=== PATIENT | male | born 1980 | race Caucasian/White ===

== ENCOUNTER 2021-12-19 15:49 | Outpatient (RCR) | payer MEDICARE, SELFPAY ==
--- NOTE | 2021-12-19 17:13 | PTOPEVAL1 ---
Assessment and note entered by Cathie Lo DPT Evaluation Information Assessment Status Evaluation Diagnosis Gait abnormality, back pain Onset 12/13/2021 Subjective Information Pt reports that he has been having back pain and balance issues. He is unsure of if he is only receiving PT for balance or for his back pain. He reports that he is not as active as he used to be and has been having increased balance issues ( multiple falls) and fatigue. He used to have an AFO for his foot drop but has been using a boot as well. He reports he has been using a walking stick over the last few months. He has past of CP and has foot drop on his R leg. Pt reports increased back pain when walking for at least 30 min. He reports that he is unable to get comfortable when laying down. Denies N/T in back or legs. Pt would like to be able to experience less pain to stop affecting his current mobility. Reported Pain Level Pain Score 1: Self Report Assessment PT Clinical Summary Pt presents to physical therapy with back pain and gait abnormalities secondary to his diagnosis of CP. He demonstrates decreased strength on his R LE with foot drop and has altered posture and gait including increased lumbar extension with gait due to decreased core strength. His current deficits have made it more difficult for him to walk safely and with less pain as needed for his household activities. He was provided with an HEP focused on improving lumbar mobility, leg strength, and gait pattern. He will benefit from skilled PT to reduce risk for falls, improve the aforementioned impairments, and return to recreational and functional activities. Plan of Care Interventions Electrical Stimulation,Gait Training,Hot Pack/Cold Pack,Manual Therapy,Neuro Re-education,Patient/ Caregiver Educati,Therapeutic Activities, Therapeutic Exercise PT Services Indicated Yes Treatment Frequency and 2x week for 8 visits Duration These treatments will address the objective and functional deficits as defined above. The patient will be advanced safely and appropriately in order for the patient to progress towards his/her prior level of function. Additional exercises will be introduced and as well as a comprehensive home exercise program upon discharge, if needed, ?to ensure carryover of functional gains achieved in the clinic. This treatment plan has been reviewed and agreement upon by the patient.
--- NOTE | 2022-01-24 16:32 | PTOPDC ---
Assessment and note entered by Faviola Rueda, PT Evaluation Information Assessment Status Discharge Diagnosis Gait Abnormality, Back Pain Onset 12/13/21 Subjective Information Damion Boyle reports his low back pain has not been present the last week until this am he notes soreness. He also reports his balance is improved . He has been able to go out two weekends in a row without his walking stick. He does note he will use a wheelchair cart when he goes to [place] for a big shopping trip. He does feel like he has had trouble with his back since a golf injury he sustained in 2019. Reported Pain Level Pain Score 0: Self Report Assessment PT Clinical Summary Damion Boyle has completed 8 skilled physical therapy visits for gait abnormality and back pain. He is reporting minimal to no low back pain and has been able to return to walking without his walking stick since initiating PT. He objectively demonstrates improved LE strength, improved core strength, and improved static and dynamic balance. He is now a low fall risk per the Tinetti Balance test. He was also able to increase his walking distance by 350 feet on the 6 minute walk test. He will be discharged to an independent home program after today. Plan of Care Interventions Electrical Stimulation,Hot Pack/Cold Pack,Neuro Re -education,Patient/Caregiver Educati,Therapeutic Activities,Therapeutic Exercise PT Services Indicated No
== END 2022-01-24 16:36 | disposition home or self-care (01) ==
LOC: CHSPT 15:49
PROVIDERS: Visit Provider Internal Medicine
DX: R26.9 Unspecified abnormalities of gait and mobility (principal)
CPT/HCPCS: 97014; 97110; 97162; G0283

== ENCOUNTER 2024-06-18 14:51 | Emergency (ER) | payer MEDICARE, SELFPAY ==
[2024-06-18 14:51] VITALS: BP 124/86; PULSE 81; RESP 20; TEMP 37.1; O2SAT 95
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
--- NOTE | 2024-06-18 15:39 | ECG_ITS ---
Test Date: 2024-06-18 16:01:54 Measurements Intervals [place] Rate: 67 P: 67 MI: 122 QRS: 97 QRSD: 99 T: 68 QT: 384 QTc: 408 Interpretive Statements SINUS RHYTHM WITH SINUS ARRHYTHMIA RIGHT AXIS DEVIATION INCOMPLETE RIGHT BUNDLE BRANCH BLOCK MINIMAL Q WAVES- INFERIOR LEADS BASELINE ARTIFACT- I, II, III, AVR, AVL, AVF, V1-V6 BORDERLINE ECG No previous ECG available for comparison Electronically Signed On 06-18-2024 18:12:56 CDT by Tong Wiggins D.O.
--- NOTE | 2024-06-18 15:45 | PC.NURSE ---
ERP HAS SPOKEN WITH PT. FATHER IS NOW AT BEDSIDE. SANDWICH AND SODA WERE PROVIDED TO PT. PT AND FATHER ARE AWARE OF PLAN OF CARE. WILL CONTINUE TO MONITOR.
[2024-06-18 16:10] LABS: Basophils Absolute Auto 0.07 K/mm3 (0.00-0.10); Basophils Percent Auto 0.8 % (0.0-1.0); Eosinophils Absolute Auto 0.21 K/mm3 (0.02-0.50); Eosinophils Percent Auto 2.5 % (1.0-6.0); Hematocrit 48.4 % (40.0-54.0); Hemoglobin 16.3 g/dL (14.0-18.0); Immature Granulocyte Absolute 0.02 K/mm3 (0.00-0.00); Immature Granulocyte Percent A 0.2 % (0.0-0.0); Lymphocytes Absolute Auto 1.34 K/mm3 (1.10-4.50); Lymphocytes Percent Auto 15.9 % (18.0-42.0); Mean Corpuscular HGB Conc 33.7 g/dL (32-36); Mean Corpuscular Hemoglobin 29.5 pg (27.0-31.0); Mean Corpuscular Volume 87.7 fL (78.0-102.0); Mean Platelet Volume 9.5 fl (8.7-11.0); Monocytes Absolute Auto 0.62 K/mm3 (0.10-0.90); Monocytes Percent Auto 7.3 % (2.0-11.0); Neutrophils Absolute Auto 6.19 K/mm3 (1.70-7.20); Neutrophils Percent Auto 73.3 % (50.0-70.0); Platelet Count Result 242 K/mm3 (150-420); Red Blood Count 5.52 M/mm3 (4.70-6.10); White Blood Count 8.5 K/mm3 (4.8-10.8)
--- NOTE | 2024-06-18 16:15 | PC.NURSE ---
PT IS TALKING WITH FATHER IN EXAM ROOM AT THIS TIME. AWAITING RESULTS FOR [address] NOTIFICATION. WILL CONTINUE TO MONITOR.
--- OUTSIDE RECORDS SUMMARY | 2024-06-18 16:28 | XMS_ITS | Clinical Summary ---
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 04/06/2018 Active Active Problems Problem Noted Date Diagnosed Date Asymptomatic microscopic hematuria 05/20/2018 Peritonsillar abscess 05/17/2018 Social History Tobacco Use Types Packs/Day Years Used Date Smoking Tobacco: Never Smokeless Tobacco: Never Sex and Gender Information Value Date Recorded Sex Assigned at Not on file Legal Sex Male 4:06 PM [employer] Gender Identity Not on file Sexual Orientation Not on file Last Filed Vital Signs Vital Sign Reading Time Taken Comments Blood Pressure 103/64 05/20/2018 7:37 AM CDT Pulse 71 05/20/2018 7:37 AM CDT Temperature 36.8 C (98.2 F) 05/20/2018 5:40 AM CDT Respiratory Rate 18 05/20/2018 5:40 AM CDT Oxygen Saturation 98% 05/20/2018 7:37 AM CDT Inhaled Oxygen Concentration - - Weight 84.4 kg (186 lb 1.1 oz) 05/18/2018 4:00 A M [employer] Height 170.2 cm (5' 7 ) 05/17/2018 4:08 PM [employer] Body Mass Index 29.14 05/17/2018 4:08 PM [employer] Plan of Treatment Health Maintenance Due Date Last Done Comments Annual Physical 1983 Hepatitis C 2000 DTaP, Tdap and Td Vaccines ( 1 - Tdap) 2001 Hepatitis B Vaccines (1 of 3 - 19+ 3-dose series) 2001 COVID-19 Vaccine (2023-2 5 season) 2023 HPV Vaccines Aged Out No longer eligi ble based on patient's age to complete this topic Meningococcal B Vaccine Aged Out No l onger eligible based on patient's age to complete this topic Meningococcal Vaccine Aged Out No kaylen margaret eligible based on patient's age to complete this topic Pneumococcal Vaccine: Pediat rics (0 to 5 Years) and At-Risk Patients (6 to 64 Years) Aged Out No longer eligible b ased on patient's age to complete this topic RSV Immunizations Under 20 Months Aged Out No longer eligible based on patient's age to complete this topic Insurance MEDICARE Advance Directives * Full Code (Latest Code Status on File) Date Activated Date Inactivated Comments 05/17/2018 4:59 PM 05/20/2018 1:10 PM
--- OUTSIDE RECORDS SUMMARY | 2024-06-18 16:28 | XMS_ITS | Clinical Summary ---
Author Organization [facility] [address] Address [address] [place] [address] Phone Care Team Providers Care Frit Burner Name Role Phone Magdi Cain MD Primary Care Provider [phone] Allergies Active Allergy Reactions Criticality Noted Date Comments Codeine Other (See comments) Reaction: Unknown, Penicillins Unknown 05/16/2018 Venom-Honey Bee Medications sildenafiL (VIAGRA) 100 mg tablet Take 1 tablet (100 mg total) by mouth daily as needed for erectile dysfunction 6 tablet 6 3 Active ibuprofen (ADVIL,MOTRIN) 800 mg tablet TAKE 1 TABLET BY MOUTH TWICE A DAY 60 tablet 1 4 Active busPIRone (BUSPAR) 10 mg tabletIndicatio ns:Anxiety and depression TAKE 1 TABLET BY MOUTH THREE TIMES A DAY 270 tablet 1 4 Active escitalopram (LEXAPRO) 20 mg tabletIndicatio ns:Anxiety and depression TAKE 1 TABLET BY MOUTH EVERY DAY 90 tablet 1 5 Active Active Problems Problem Noted Date Diagnosed Date Major depressive disorder, recurrent episode, mo derate 10/07/2023 Assessment & Plan (10/07/2023 6:50 PM CDT): Patient is stable in his present medication Lexapro 20 mg daily BuSpar 10 mg t.i.d.. He does have periods of breakthrough depression this is not a prolonged period of time Weight loss 02/09/2023 Assessment & Plan (02/09/2023 5:53 PM ACCOUNTS SUPERVISOR): Patient has lost weight not on purpose he has a decreased appetite I am doing basic labs to make sure there is no underlying disease. Gait abnormality 12/14/2021 Assessment & Plan (04/23/2024 11:31 AM ACCOUNTS SUPERVISOR): Ataxia unchanged secondary to cerebral palsy declined in ability. Assessment & Plan (02/09/2023 5:53 PM ACCOUNTS SUPERVISOR): Patient did go to physical therapy did improve his gait and back pain the advised him that in think basis for his legs would help him Assessment & Plan (12/14/2021 3:49 PM CDT): Patient has raised a question whether not braces will help him in terms of his gait. Chiropractor friend who is recommend his understanding I have. I am request physical therapy evaluation answer whether he would benefit from braces. Chronic bilateral low back pain without sciatica 03/07/2021 Assessment & Plan (02/09/2023 5:51 PM ACCOUNTS SUPERVISOR): Patient continues to have some back pain. 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 He uses a cane this is helped him. He is found ibuprofen to benefit him he only takes it a few times a week. Advised patient's take ibuprofen 800 mg twice a day for minimum of 2 weeks maybe as long as a month. Evaluate at than this period to time with the has less pain less frequent less severity. [place] duration of pain. Encounter for preventive health examination 05/11 Assessment & Plan (04/23/2024 11:17 AM ACCOUNTS SUPERVISOR): History and physical completed patient's health risk assessment health maintenance reviewed and addressed. No new health problems since his last visit with me.. Assessment & Plan (02/09/2023 5:50 PM ACCOUNTS SUPERVISOR): History and physical completed health risk assessment health maintenance reviewed in addressed. Assessment & Plan (12/14/2021 3:53 PM CDT): Patient history and physical completed health risk assessment discussed including immunizations. Assessment & Plan (06/04/2018 5:55 PM CDT): Patient is here for a annual exam is some few weeks ago following a hospitalization for nino tonsil abscess. He did get a lot of dental work done this is been completed. His strength is almost completely returned to normal.. Patient has cerebral palsy he has a ataxic gait and speech is sometimes slurred. He has a very good mood he communicates very well this feelings in explaining himself. I reviewed labs from his hospitalizations. Her lab needed is a follow-up on glycosuria and hematuria. Post-traumatic stress disorder, chronic 09/01/19 17 Assessment & Plan (04/23/2024 11:33 AM ACCOUNTS SUPERVISOR): Posttraumatic stress both parents who are . Experienced rejection. Patient describes when he lived in [place] as originally home he did have a support group of other friends who had disabilities. Experience was beneficial to him. In [place] he is around no one else with a disability. We will continue medications for his anxiety depression which does help him. Visits with him does not include some cognitive therapy Assessment & Plan (10/02/2023 5:14 PM CDT): Patient's continues to experience at times posttraumatic stress predominantly dealing with his family/parents patient issues from the past and recent. Patient is advised he is doing reasonably job at managing these problems. Is understandable his frustration will continue present therapy. BuSpar and Lexapro Assessment & Plan (03/07/2021 4:36 PM ACCOUNTS SUPERVISOR): Patient still experiences some posttraumatic stress wants to avoid being around people mood is started his childhood he has cerebral palsy. He certainly has some components of her excessive compulsive pre has repeated thought. He admits that he has multiple persons he is talking to in his brain. Of ice that this is thought comes him is very logical makes sense he will have a different thought on the same septic but the opposite he goes that is experience throughout the day. Patient not sure he gets a lot of rest because of this. He has lot of anxiety. Assessment & Plan (08/31/2016 7:11 PM CDT): . Refer this patient to [facility] psychological services. Patient describes posttraumatic stress involving childhood experience. He also has cerebral palsy has been exposed to a lot of negative experiences from the public. Patient also clearly describes obsessive-compulsive disorder, anxiety that he does not want to be around people. Repetitive thoughts. He is not opposed to seeing a psychiatrist but he has some fears regarding medications. Anxiety and depression 08/31/2016 Assessment & Plan (10/02/2023 5:19 PM CDT): Patient's anxiety continues recently had a panic attack. Patient is compliant in taking his medications he is advised benefit of taking medicine decreases frequency panic attacks severity of panic attacks and duration. Patient continues to hear voices and has conversations with friction character disease had for years. He is embarrassed about this experience. His conversations often times helps some changes focused from his anger and frustration regarding limitations with this cerebral palsy previous experience with this family. My conversations with this gentleman is consistent with cognitive therapy. Was every bit 45 minutes duration Assessment & Plan (02/09/2023 5:52 PM ACCOUNTS SUPERVISOR): Patient continues to do over anxiety depression. Is out of BuSpar he now is getting a refill does have a problems sometimes missing doses in the evening no change in therapy patient's is reassured he is not a candidate for mental health facility he strictly logical in his communication and understanding of life. Sometimes gets upset and emotional very outside stress problems he is not a danger to himself or anyone else Assessment & Plan (12/14/2021 3:48 PM CDT): Patient is doing very well the medication Lexapro and BuSpar. Patient is disappointed with because he has had 2 exacerbation/meltdown (overwhelming anxiety) in the past 3 months since I last saw him. Prior to medication he would have sometimes as many 2 times a day rule times per week minimal 20 in 3 months. Patient handles his best by talking through them. His anxiety attacks or emotional episode involved hearing voices in his head that consulting try anti influenced him to do negative behavior. Patient clearly recognize the medication is helped him advised he may have set is status to high expecting he would never have a breakthrough/meltdown with the medications. Recommendation and continue present therapy. Assessment & Plan (05/13/2021 6:02 PM ACCOUNTS SUPERVISOR): Patient's anxiety and depression symptoms continue improved.. Had a 1 panic attack are meltdown a past 5 weeks since he has seen me. Patient feels paranoia and threatened. 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 Continues counseling with stay on the medications. Assessment & Plan (04/07/2021 5:52 PM ACCOUNTS SUPERVISOR): Patient indicates he has definitely improved on medication Lexapro and BuSpar. He notice having less and, anxiety and paranoia. Does not feel as threatened repetitive thoughts have decreased significantly. He sees as needed for improvement Lexapro was increased to 40 mg daily. Assessment & Plan (03/07/2021 4:38 PM ACCOUNTS SUPERVISOR): Patient's anxiety and depression he has fears is someone is going to locking up in a mental facility because he has multiple personal up now it is in terms of people talking to him in his brain. 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 However the differen voices/personality is that a giving him thoughts always fighting amongst cells on what he should do. Patient did fine counseling of a benefit to him. He has not been recently to the counselor. The medications previously worked they did no longer work. At this time increase his Lexapro from 5 mg daily to 20 mg daily. I am not going to change to BuSpar at this time. Month certain well but happen if we were to suppress all of his OCD and competitive voices in his brain how he would do. He is afraid if he did not have any by did talk to her no thought processes in his brain he would really feel isolated. Still holes on the sometimes feeling worthless and that he is a burden to others secondary to his cerebral palsy. Assessment & Plan (10/10/2019 2:25 PM CDT): This patient is anxiety has intensified in recent months related to the COVID-19 pandemic as well as some of the political unrest. Patient's anger levels is increased, patient's has decreased. Patient's recognize this. He is having repetitive thoughts feelings of threats he comes in contact with other. Patient recognized some of these feelings are not warranted none the less he feels he can not lead is Guard down. This patient has cerebral palsy affects speech and is gait. He is press is that he feels like he has a potential victim for anyone who is raises the wants to be aggressive. Patient also advised me that his previous counts the mental health facility his left he saw new counselor the report was not well established.. New counselor a questions out legitimate was some of his actions and feelings.. This idea did not go well with him given the fact he has already self conscious having cerebral palsy in obvious physical changes from it. Plan advised patient to seek out a new new counselor at the facility and that his falls and actions and not for attention seeking but a real experiences to him. Second suggestion patient needs to turn off the news stations there really of setting him.. Patient agrees that he is going to put a block this cable TV systems a wart what certain programs at the been known to get him upset.. Third situation patient will be started on Lexapro 5 mg daily. He is advised that he may have side effects from the medication attempt to tolerated to side effects are tolerable. Assessment & Plan (04/30/2019 3:48 PM ACCOUNTS SUPERVISOR): Patient continues to be used for is doing very well with present medication. Patient's feels reasonably controlled deal with his emotions an everyday life will continue present therapy Assessment & Plan (06/04/2018 5:53 PM CDT): Patient depressive symptoms are greatly improved BuSpar is helped him considerably with his anxiety. He has anxiety when he goes places in after he has day settles down he lot of anxiety as he gets closer to the doctor's office today for this visit even though he has been here did many times. Patient also gives a example being very anxious he went to the [employer] hockey game last night and he was wearing the opponens Jersey. He had repetitive thoughts this someone was going to jump on him in bite in because he is wearing the opponent team Jersey. Attitude he was there for several minutes and got a seat this fear eventually resolved. Continue BuSpar. Assessment & Plan (07/23/2017 3:27 PM CDT): Patient doing very well on BuSpar 5 mg 3 times a day. He has learned he takes 2 tablets in the morning 1 in the evening is works best for him. In his opinion he had only 2 meltdown in the past 11 months since being on this medication. Very comfortable with outcome. He has cerebral palsy is expected speech is able to communicate very well with me today on this issue. Assessment & Plan (08/31/2016 7:15 PM CDT): Patient describes a lot of anxiety anger slam stains breaks things when he becomes anger goes into rages never cause any harm or intents to harm to anyone. Withdrawals from others are frustration. He does have crying spells and sadness. Like some assistance for anxiety and depression. Started on BuSpar 5 mg 3 times a day. I discuss antidepressants can make depression were and he is apprehensive about this. Refer to psychiatry for his depressive component. And take over his anxiety treatment as well as concerned about his communication and intelligent. He expresses itself very well his great insight into his problems. He is not homicidal or suicidal. Ataxic cerebral palsy 08/31/2016 Assessment & Plan (08/31/2016 7:13 PM CDT): Cerebral palsy patient is not declining at all he is study get his GED. Resolved Problems Problem Noted Date Diagnosed Date Resolved Date Hematuria of undiagnosed cause 06/04/2018 02/09/2023 Assessment & Plan (06/04/2018 5:52 PM CDT): Incidental hematuria when he was patient was septic and toxic from very tonsil abscess will repeat a UA today. Hospital discharge follow-up 05/21/2018 04/30/2019 Assessment & Plan (05/21/2018 6:13 PM CDT): Patient discharged from [facility] in [facility] yesterday for peritonsillar abscess. Presently he is on clindamycin. He had several infected infected teeth he schedule yet extractions next week after he completes his antibiotics. Patient is presently taking chart a given 3 more days a toradol list maximum recommended he can take. He presently has a total of 8 tablets of tramadol remaining from his hospital discharge. Patient is given sample of Dexilant because he is taking the non steroidal anti-inflammatory Toradol. Glucosuria 05/21/2018 12/14/2021 Assessment & Plan (06/04/2018 5:51 PM CDT): Patient glucosuria and hematuria is recovering from his peritonsillar abscess. Recheck UA today Assessment & Plan (05/21/2018 6:14 PM CDT): Patient had glucosuria while in the hospital will get a repeat UA today. No blood draw today patient has had a difficult time with blood drawing last 3 days while in the hospital. Fever 05/16/2018 04/30/2019 Assessment & Plan (05/16/2018 6:19 PM ACCOUNTS SUPERVISOR): Patient has been running a fever for the last 2-3 days, she is wet he is no longer fever. He has been taking Tylenol around the clock and some muscle aches. Plans at this time continue to CBC is all the metabolic profile. Patient is treated for acute bronchitis and upper respiratory tract symptoms with doxycycline 100 mg twice a day. Sore throat 05/16/2018 04/30/2019 Assessment & Plan (05/16/2018 6:18 PM ACCOUNTS SUPERVISOR): Patient's source is doing a lot of coughing and congestion. He also has gag reflex is difficult to get a throat swab does not open his mouth very wide is cerebral palsy. Patient is treated for upper and lower respiratory tract infection doxycycline 100 mg twice a day for 10 days. Cellulitis of left forearm 11/08/2017 0 04/30/2019 Assessment & Plan (11/08/2017 5:31 PM CDT): Cellulitis on left elbow is been there 7-10 days open some drainage whole circumference is about 8 cm with the opening approximately 0.5 cm in diameter with yellow mucus present. Patient did not have any pain he is wheezing and some pus and run out I was unable to get any pus to come out today. Wound is clean nontender. Plans Bactrim DS 1 twice a day for 7 days patient is highly allergic to penicillin. Encounter for post-traumatic wound check 07/23/2017 04/30/2019 Assessment & Plan (07/23/2017 3:29 PM CDT): Patient laceration of his left forearm last week his arm went through wonder. He had sutures placed in a stocking Hospital was seen Sunday for follow-up in emergency room advised follow-up his PCP's wound had completely healed. Today's visit is wound is healed sutures removed no evidence of infection no need for further treatment. Foot pain, right 08/31/2016 02/09/2023 Assessment & Plan (08/31/2016 7:12 PM CDT): Patient has revoked pause in as a at attic gait and he informs me for about 2 years he had a shoe prosthesis that extended all way up his legs this relieved in the consider wound leg pain and foot pain. Without the prosthesis for issue and leg he will wear the heel off of his right shoe in a matter of a few months. The left heel will be normal refer to Podiatry evaluation for proper footwear prosthesis is/equipment to help this gentleman gait and pain Encounters Date Type Department Care Team Description 06/18/2024 Telephone [facility] [address] [place] [address] Magdi Cain MD Anxiety 04/22/2024 1:30 PM ACCOUNTS SUPERVISOR Lab [facility] [address] [place] [address] Need for hepatitis C screening test; Need for hepatitis B screening test 04/22/2024 1:00 PM ACCOUNTS SUPERVISOR Office Visit [facility] [address] [place] [address] Magdi Cain MD Need for immunization against influenza (Primary Dx); Need for hepatitis C screening test; Encounter for preventive health examination; Need for hepatitis B screening test; Post-traumatic stress disorder, chronic; Ataxic cerebral palsy (HCC) from Last 3 Months Immunizations Immunization Administration Dates Next Due Influenza, Trivalent, Preser vative Free, Intramuscular 04/22/2024 Influenza, Unspecified 12/10/2022(Deferred: Teri ent Refused) TD Preservative Free 03/12/2009 Surgical History Surgery Date Site/Laterality Comments OTHER SURGICAL HISTORY HEEL CORDS LENGHTENED Family History Medical History Relation Name Comments Coronary artery disease Father Buster nary artery disease, premature; Hypertension Father Hypertension; Throat cancer Father Cancer, throat ; Alcohol abuse Father's Brother Alcoholism ; Brain Aneurysm Mother's Sister BRAIN ANEU RYSM; Relation Name Status Comments Father Father's Brother Mother's Sister Social History Tobacco Use Types Packs/Day Years Used Date Smoking Tobacco: Former Smokeless Tobacco: Never Tobacco Cessation:Counseling Given: Not Answered Alcohol Use Standard Drinks/Week Comments Yes 0 (1 standard drink = 0.6 oz pur e alcohol) PHQ-2 Answer Date Recorded PHQ-2 Total Score (If total score is 3 or more points, staff should administer the PHQ-9) 3 04/22/2024 PHQ-9 Answer Date Recorded PHQ-9 Total Score 14 04/22/2024 Sex and Gender Information Value Date Recorded Sex Assigned at Not on file Legal Sex Male 9:05 PM ACCOUNTS SUPERVISOR Gender Identity Not on file Sexual Orientation Not on file Obstetrics History Last Filed Vital Signs Vital Sign Reading Time Taken Comments Blood Pressure 135/93 04/22/2024 12:17 PM ACCOUNTS SUPERVISOR Pulse 64 04/22/2024 12:17 PM ACCOUNTS SUPERVISOR Temperature 36.2 C (97.1 F) 04/22/2024 12:17 PM ACCOUNTS SUPERVISOR Respiratory Rate 16 04/22/2024 12:17 PM ACCOUNTS SUPERVISOR Oxygen Saturation 95% 04/22/2024 12:17 PM ACCOUNTS SUPERVISOR Inhaled Oxygen Concentration - - Weight 88.5 kg (195 lb 3.2 oz) 04/22/2024 12:17 PM ACCOUNTS SUPERVISOR Height 170.2 cm (5' 7 ) 04/22/2024 12:17 PM ACCOUNTS SUPERVISOR Body Mass Index 30.57 04/22/2024 12:17 PM ACCOUNTS SUPERVISOR Plan of Treatment Health Maintenance Due Date Last Done Comments Varicella Vaccines (1 of 2 - 13+ 2-dose series) 06/12/1995 DTaP/Tdap/Td Vaccine (1 - Tdap) 03/13/2009 03/12/2009 Depression Screening 04/22/2025 04/22/2024, 04/22/2024, 05/13/2021, Additional history exists Regular Well Visit/Exam 18-64 04/22/2025 04/22/2024, 02/09/2023, 12/13/2021, Additional history exists Hepatitis B Screening Completed 04/22/2024 Hepatitis C Screening Completed 04/22/2024 Influenza Vaccine Completed 04/22/2024 HPV Vaccines Aged Out No longer eligi ble based on patient's age to complete this topic Pneumococcal vaccine <65 Aged Out No longer eligible based on patient's age to complete this topic Procedures Procedure Name Priority Date/Time Associated Diagnosis Comments HEPATITIS B SURFACE ANTIGEN Routine 04/22/2024 1:22 PM ACCOUNTS SUPERVISOR Need for hepatitis B screening test HEPATITIS B CORE ANTIBODY, TOTAL Routine 04/22/2024 1:22 PM ACCOUNTS SUPERVISOR Need for hepatitis B screening test HEPATITIS B SURFACE ANTIBODY (IMMUNE STATUS) Routine 04/22/2024 1:22 PM ACCOUNTS SUPERVISOR Need for hepatitis B screening test HEPATITIS C ANTIBODY Routine 04/22/2024 1:22 PM ACCOUNTS SUPERVISOR Need for hepatitis C screening test from Last 3 Months Results * Hepatitis C antibody Blood (04/22/2024 1:22 PM ACCOUNTS SUPERVISOR) Hep C Ab Nonreactive Nonreactive Comment: Interpretive Data Nonreactive: Antibodies to HCV not detected. Does NOT exclude the possibility of recent exposure to HCV. Equivocal: Equivocal for HCV antibodies. Supplemental molecular testing will be automatically performed to determine infection status in accordance with current CDC screening recommendations. Reactive: Positive for HCV antibodies. This may represent current or past HCV infection. Supplemental molecular testing will be automatically performed to determine current infection status in accordance with current CDC screening recommendations. Interpretive data was last revised on 2019. Testing performed by: [facility], [address] [place] [address]., [id number] Blood 04/22/2024 1:22 PM ACCOUNTS SUPERVISOR 04/22/2024 8:28 PM ACCOUNTS SUPERVISOR Magdi Cain MD LAB MICROBIOLOGY - GENERAL ORDERABLES Final Result Performing Organization Address City/[facility]/ZIP Co de Phone Number MESERET [phone] [facility] [place] [address] * Hepatitis B core antibody, total Blood (04/22/2024 1:22 PM ACCOUNTS SUPERVISOR) Pathologist [facility] Hep B core IgG/IgM Nonreactive Nonreactive Comment:Testing performed by : [facility], [address] [place] [address]., [id number] Blood 04/22/2024 1:22 PM ACCOUNTS SUPERVISOR 04/23/2024 10:28 AM ACCOUNTS SUPERVISOR Magdi Cain MD LAB MICROBIOLOGY - GENERAL ORDERABLES Final Result Performing Organization Address [facility] Co de Phone Number MESERET [phone] [facility] [place] [address] * Hepatitis B surface antibody (immune status) Blood (04/22/2024 1:22 PM ACCOUNTS SUPERVISOR) Pathologist [facility] HBsAb (immune status) Nonreactive Comment: Interpretive Data Nonreactive: This result is consistent with a lack of immunity to Hepatitis B Virus when used in the setting of routine screening. Equivocal: The immune status of the individual should be further assessed, if appropriate, after consideration of clinical status, risk factors, and additional diagnostic information. Reactive: This result is consistent with immunity to Hepatitis B Virus when used in the setting of routine screening. Current interpretive data was last revised on 19. Testing performed by: [facility], [address] [place] [address]., [id number] Blood 04/22/2024 1:22 PM ACCOUNTS SUPERVISOR 04/22/2024 8:28 PM ACCOUNTS SUPERVISOR Magdi Cain MD LAB MICROBIOLOGY - GENERAL ORDERABLES Final Result Performing Organization Address City/[facility]/ZIP Co de Phone Number MESERET MENDOSA [address] [address] [place] [address] * Hepatitis B Surface Antigen Blood (04/22/2024 1:22 PM ACCOUNTS SUPERVISOR) HepBsAg Nonreactive Nonreactive Comment:Testing performed by : [facility], [address] [place] [address]., [id number] Blood 04/22/2024 1:22 PM ACCOUNTS SUPERVISOR 04/22/2024 8:28 PM ACCOUNTS SUPERVISOR Magdi Cain MD LAB MICROBIOLOGY - GENERAL ORDERABLES Final Result Performing Organization Address [facility] Co de Phone Number MESERET MENDOSA [address] [address] [place] [address] from Last 3 Months Insurance MEDICARE [facility] Address: [address] [address] [place] [address] Care Teams Frit Burner Relationship Specialty Start Date End Date Magdi Cain MD PCP - General 05/28/13
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
--- OUTSIDE RECORDS SUMMARY | 2024-06-18 16:28 | XMS_ITS | Referral Summary ---
Author Organization [facility] [address] Address [address] [place] [address] Phone Care Team Providers Care Windows Consultant Name Role Phone Magdi Cain MD Primary Care Provider [phone]- [phone] Encounters Date Type Department Care Team Description 06/18/[facility]24 [facility] [address] [place] [phone] Magdi Cain MD Anxiety 04/22/2024 1:30 PM ASBESTOS WIRE FINISHER Lab [facility] [address] [place] [address] Need for hepatitis C screening test; Need for hepatitis B screening test 04/22/2024 1:00 PM ASBESTOS WIRE FINISHER Office Visit [facility] [address] [place] [phone] Magdi Cain MD Need for immunization against influenza (Primary Dx); Need for hepatitis C screening test; Encounter for preventive health examination; Need for hepatitis B screening test; Post-traumatic stress disorder, chronic; Ataxic cerebral palsy (HCC) from Last 3 Months Allergies Active Allergy Reactions Criticality Noted Date [...] 02/09/2023 Assessment & Plan (02/09/2023 5:53 PM ASBESTOS WIRE FINISHER): Patient has lost weight not on purpose he has a decreased appetite I am doing basic labs to make sure there is no underlying disease. Gait abnormality 12/14/2021 Assessment & Plan (04/23/2024 11:31 AM ASBESTOS WIRE FINISHER): Ataxia unchanged secondary to cerebral palsy declined in ability. Assessment & Plan (02/09/2023 5:53 PM ASBESTOS WIRE FINISHER): Patient did go to physical therapy did [...] 03/07/2021 Assessment & Plan (02/09/2023 5:51 PM ASBESTOS WIRE FINISHER): Patient continues to have some back pain. He found physical therapy 6 months ago did help him reduce his pain 20-40% refer back to physical therapy also felt it made him stronger and ambulating patient would like to postpone physical therapy visits until 2023 when [address] insurance [address] place Assessment & Plan (04/07/2021 5:52 PM ASBESTOS WIRE FINISHER): Joint pains have improved some this is the ibuprofen Assessment & Plan (03/07/2021 4:39 PM ASBESTOS WIRE FINISHER): Patient's chronic back pain for least a [...] has less pain less frequent less severity. [place] duration of pain. Encounter for preventive health examination 05/11 Assessment & Plan (04/23/2024 11:17 AM ASBESTOS WIRE FINISHER): History and physical completed patient's health risk assessment health maintenance reviewed and addressed. No new health problems since his last visit with me.. Assessment & Plan (02/09/2023 5:50 PM ASBESTOS WIRE FINISHER): History and physical completed health risk assessment [...] 17 Assessment & Plan (04/23/2024 11:33 AM ASBESTOS WIRE FINISHER): Posttraumatic stress both parents who are . Experienced rejection. Patient describes when he lived in [place] as originally home he did have a support group of other friends who had disabilities. Experience was beneficial to him. In [place] he is around no one else with [...] Lexapro Assessment & Plan (03/07/2021 4:36 PM ASBESTOS WIRE FINISHER): Patient still experiences some posttraumatic stress wants [...] PM CDT): . Refer this patient to [place] psychological services. Patient describes posttraumatic stress involving [...] duration Assessment & Plan (02/09/2023 5:52 PM ASBESTOS WIRE FINISHER): Patient continues to do over anxiety depression. [...] therapy. Assessment & Plan (05/13/2021 6:02 PM ASBESTOS WIRE FINISHER): Patient's anxiety and depression symptoms continue improved.. Had a 1 panic attack are meltdown a past 5 weeks since he has seen me. Patient feels paranoia and threatened. 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 Continues counseling with stay on the medications. Assessment & Plan (04/07/2021 5:52 PM ASBESTOS WIRE FINISHER): Patient indicates he has definitely improved on medication Lexapro and BuSpar. He notice having less and, anxiety and paranoia. Does not feel as threatened repetitive thoughts have decreased significantly. He sees as needed for improvement Lexapro was increased to 40 mg daily. Assessment & Plan (03/07/2021 4:38 PM ASBESTOS WIRE FINISHER): Patient's anxiety and depression he has fears [...] tolerable. Assessment & Plan (04/30/2019 3:48 PM ASBESTOS WIRE FINISHER): Patient continues to be used for is [...] being very anxious he went to the [employer] hockey game last night and he was wearing the opponens [employer]. He had repetitive thoughts this someone was going to jump on him in bite in because he is wearing the opponent team [employer]. Attitude he was there for several minutes [...] (05/21/2018 6:13 PM CDT): Patient discharged from [facility] in [facility] yesterday for peritonsillar abscess. Presently he [...] 04/30/2019 Assessment & Plan (05/16/2018 6:19 PM ASBESTOS WIRE FINISHER): Patient has been running a fever for [...] 04/30/2019 Assessment & Plan (05/16/2018 6:18 PM ASBESTOS WIRE FINISHER): Patient's source is doing a lot of [...] to help this gentleman gait and pain Immunizations Immunization Administration Dates Next Due Influenza, Trivalent, Preser vative Free, Intramuscular 04/22/2024 Influenza, Unspecified 12/10/2022(Deferred: Teri ent Refused) TD Preservative Free 03/12/2009 Social History Tobacco Use Types Packs/Day Years [...] on file Legal Sex Male 9:05 PM ASBESTOS WIRE FINISHER Gender Identity Not on file Sexual Orientation Not on file Last Filed Vital Signs Vital Sign Reading Time Taken Comments Blood Pressure 135/93 04/22/2024 12:17 PM ASBESTOS WIRE FINISHER Pulse 64 04/22/2024 12:17 PM ASBESTOS WIRE FINISHER Temperature 36.2 C (97.1 F) 04/22/2024 12:17 PM ASBESTOS WIRE FINISHER Respiratory Rate 16 04/22/2024 12:17 PM ASBESTOS WIRE FINISHER Oxygen Saturation 95% 04/22/2024 12:17 PM ASBESTOS WIRE FINISHER Inhaled Oxygen Concentration - - Weight 88.5 kg (195 lb 3.2 oz) 04/22/2024 12:17 PM ASBESTOS WIRE FINISHER Height 170.2 cm (5' 7 ) 04/22/2024 12:17 PM ASBESTOS WIRE FINISHER Body Mass Index 30.57 04/22/2024 12:17 PM ASBESTOS WIRE FINISHER Plan of Treatment Not on file Procedures Procedure Name Priority Date/Time Associated Diagnosis Comments HEPATITIS B SURFACE ANTIGEN Routine 04/22/2024 1:22 PM ASBESTOS WIRE FINISHER Need for hepatitis B screening test HEPATITIS B CORE ANTIBODY, TOTAL Routine 04/22/2024 1:22 PM ASBESTOS WIRE FINISHER Need for hepatitis B screening test HEPATITIS B SURFACE ANTIBODY (IMMUNE STATUS) Routine 04/22/2024 1:22 PM ASBESTOS WIRE FINISHER Need for hepatitis B screening test HEPATITIS C ANTIBODY Routine 04/22/2024 1:22 PM ASBESTOS WIRE FINISHER Need for hepatitis C screening test from Last 3 Months Results * Hepatitis C antibody Blood (04/22/2024 1:22 PM ASBESTOS WIRE FINISHER) Hep C Ab Nonreactive Nonreactive Comment: Interpretive [...] last revised on 2019. Testing performed by: [facility], [address] [place] [address]., [id number] Blood 04/22/2024 1:22 PM ASBESTOS WIRE FINISHER 04/22/2024 8:28 PM ASBESTOS WIRE FINISHER us Magdi Cain MD LAB MICROBIOLOGY - GENERAL ORDERABLES Final Result Performing Organization Address City/State/[facility] Co de Phone Number [facility] [address] [facility] Department [place] [address] * Hepatitis B core antibody, total Blood (04/22/2024 1:22 PM ASBESTOS WIRE FINISHER) Hep B core IgG/IgM Nonreactive Nonreactive Comment:Testing performed by : [facility], [address] [place] [address], [place]., [address] Blood 04/22/2024 1:22 PM ASBESTOS WIRE FINISHER 04/23/2024 10:28 AM ASBESTOS WIRE FINISHER us Magdi Cain MD LAB MICROBIOLOGY - GENERAL ORDERABLES Final Result Performing Organization Address City/[facility]/ZIP Co de Phone Number MESERET MENDOSA [address] [address] [email or web address] [address] * Hepatitis B surface antibody (immune status) Blood (04/22/2024 1:22 PM ASBESTOS WIRE FINISHER) HBsAb (immune status) Nonreactive Comment: Interpretive Data [...] last revised on 19. Testing performed by: [address] [id number] Blood 04/22/2024 1:22 PM ASBESTOS WIRE FINISHER 04/22/2024 8:28 PM ASBESTOS WIRE FINISHER us Magdi Cain MD LAB MICROBIOLOGY - GENERAL ORDERABLES Final Result Performing Organization Address [facility] Co de Phone Number MESERET [address] [facility] [place] [address] * Hepatitis B Surface Antigen Blood (04/22/2024 1:22 PM ASBESTOS WIRE FINISHER) HepBsAg Nonreactive Nonreactive Comment:Testing performed by : [address] [id number] Blood 04/22/2024 1:22 PM ASBESTOS WIRE FINISHER 04/22/2024 8:28 PM ASBESTOS WIRE FINISHER Magdi Cain MD LAB MICROBIOLOGY - GENERAL ORDERABLES Final Result MESERET MENDOSA [address] [address] [place] [address] from Last 3 Months Insurance MEDICARE MEDICARE MEDICARE Care Teams Windows Consultant Relationship Specialty Start Date End Date Magdi Cain MD [facility] - General 05/28/13
[2024-06-18 16:35] LABS: Alanine Aminotransferase 25 U/L (16-63); Albumin Level 4.7 g/dL (3.4-5.0); Alkaline Phosphatase 79 U/L (46-116); Anion Gap 12 mmol/L (4-12); Aspartate Amino Transferase 14 U/L (15-37); Bilirubin,Total 1.5 mg/dL (0.00-1.00); Blood Urea Nitrogen 13 mg/dL (7-18); Calcium 9.6 mg/dL (8.5-10.1); Carbon Dioxide 26 mmol/L (21-32); Chloride 104 mmol/L (98-108); Estimated CRCL calculation 71 ml/min; Estimated Glomerular Filt Rate > 60; Glucose 104 mg/dL (70-99); Osmolality Calculated 294 mOsm/kg (285-295); Potassium 4.1 mmol/L (3.5-5.1); Sodium 142 mmol/L (136-145); Thyroid Stimulating Hormone 1.44 uIU/mL (0.36-3.74); Total Protein 8.1 g/dL (6.4-8.2); Troponin I 5.4 ng/L (0.00-60.4)
--- NOTE | 2024-06-18 16:44 | PC.NURSE ---
PT IS SPEAKING WITH FATHER, , AND HER MOTHER AT BEDSIDE. PT IS ATTEMPTING TO PROVIDE URINE SPECIMEN. WILL CONTINUE TO MONITOR.
[2024-06-18 16:46] LABS: Influenza A QL RT-PCR Negative (Negative); Influenza B QL RT-PCR Negative (Negative); RSV RNA, RT-PCR Negative (Negative); SARS-CoV-2 RNA PCR Negative (Negative)
--- OUTSIDE RECORDS SUMMARY | 2024-06-18 16:49 | XMS_ITS | Clinical Summary ---
Author Organization [facility] Address [address] [place] [address] Care Team Providers Care Lidar Analyst Name Role Phone Unavailable Primary Care Provider [...] on file Legal Sex Male 4:06 PM ELECTRICAL INSTRUMENT MAKER Gender Identity Not on file Sexual Orientation [...] lb 1.1 oz) 05/18/2018 4:00 A M ELECTRICAL INSTRUMENT MAKER Height 170.2 cm (5' 7 ) 05/17/2018 4:08 PM ELECTRICAL INSTRUMENT MAKER Body Mass Index 29.14 05/17/2018 4:08 PM ELECTRICAL INSTRUMENT MAKER Plan of Treatment Health Maintenance Due Date [...]
--- OUTSIDE RECORDS SUMMARY | 2024-06-18 16:49 | XMS_ITS | Clinical Summary ---
Author Organization [facility] [address] Address [address] [place] [address] Phone Care Team Providers Care Brake Repairer Air Name Role Phone Magdi Cain MD Primary Care Provider +1- [phone] Allergies Active Allergy Reactions Criticality Noted Date [...] 02/09/2023 Assessment & Plan (02/09/2023 5:53 PM TRANSPORTATION CONSULTANT): Patient has lost weight not on purpose he has a decreased appetite I am doing basic labs to make sure there is no underlying disease. Gait abnormality 12/14/2021 Assessment & Plan (04/23/2024 11:31 AM TRANSPORTATION CONSULTANT): Ataxia unchanged secondary to cerebral palsy declined in ability. Assessment & Plan (02/09/2023 5:53 PM TRANSPORTATION CONSULTANT): Patient did go to physical therapy did [...] 03/07/2021 Assessment & Plan (02/09/2023 5:51 PM TRANSPORTATION CONSULTANT): Patient continues to have some back pain. He found physical therapy 6 months ago did help him reduce his pain 20-40% refer back to physical therapy also felt it made him stronger and ambulating patient would like to postpone physical therapy visits until 2023 when new insurance takes place Assessment & Plan (04/07/2021 5:52 PM TRANSPORTATION CONSULTANT): Joint pains have improved some this is the ibuprofen Assessment & Plan (03/07/2021 4:39 PM TRANSPORTATION CONSULTANT): Patient's chronic back pain for least a [...] has less pain less frequent less severity. [place] duration of pain. Encounter for preventive health examination 05/11 Assessment & Plan (04/23/2024 11:17 AM TRANSPORTATION CONSULTANT): History and physical completed patient's health risk assessment health maintenance reviewed and addressed. No new health problems since his last visit with me.. Assessment & Plan (02/09/2023 5:50 PM TRANSPORTATION CONSULTANT): History and physical completed health risk assessment [...] 17 Assessment & Plan (04/23/2024 11:33 AM TRANSPORTATION CONSULTANT): Posttraumatic stress both parents who are . Experienced rejection. Patient describes when he lived in [place] as originally home he did have a support group of other friends who had disabilities. Experience was beneficial to him. In [place] he is around no one else with [...] Lexapro Assessment & Plan (03/07/2021 4:36 PM TRANSPORTATION CONSULTANT): Patient still experiences some posttraumatic stress wants [...] PM CDT): . Refer this patient to [facility] psychological services. Patient describes posttraumatic stress involving [...] duration Assessment & Plan (02/09/2023 5:52 PM TRANSPORTATION CONSULTANT): Patient continues to do over anxiety depression. [...] therapy. Assessment & Plan (05/13/2021 6:02 PM TRANSPORTATION CONSULTANT): Patient's anxiety and depression symptoms continue improved.. Had a 1 panic attack are meltdown a past 5 weeks since he has seen me. Patient feels paranoia and threatened. 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 Continues counseling with stay on the medications. Assessment & Plan (04/07/2021 5:52 PM TRANSPORTATION CONSULTANT): Patient indicates he has definitely improved on medication Lexapro and BuSpar. He notice having less and, anxiety and paranoia. Does not feel as threatened repetitive thoughts have decreased significantly. He sees as needed for improvement Lexapro was increased to 40 mg daily. Assessment & Plan (03/07/2021 4:38 PM TRANSPORTATION CONSULTANT): Patient's anxiety and depression he has fears [...] tolerable. Assessment & Plan (04/30/2019 3:48 PM TRANSPORTATION CONSULTANT): Patient continues to be used for is [...] being very anxious he went to the [employer] hockey game last night and he was [...] (05/21/2018 6:13 PM CDT): Patient discharged from [facility] in [facility] yesterday for peritonsillar abscess. Presently he [...] 04/30/2019 Assessment & Plan (05/16/2018 6:19 PM TRANSPORTATION CONSULTANT): Patient has been running a fever for [...] 04/30/2019 Assessment & Plan (05/16/2018 6:18 PM TRANSPORTATION CONSULTANT): Patient's source is doing a lot of [...] Type Department Care Team Description 06/18/2024 Telephone [facility] [address] [place] [address] Magdi Cain MD Anxiety 04/22/2024 1:30 PM TRANSPORTATION CONSULTANT Lab [facility] [address] [place] [address] Need for hepatitis C screening test; Need for hepatitis B screening test 04/22/2024 1:00 PM TRANSPORTATION CONSULTANT Office Visit [facility] [address] [place] [address] Magdi Cain MD Need for [...] on file Legal Sex Male 9:05 PM TRANSPORTATION CONSULTANT Gender Identity Not on file Sexual Orientation Not on file Obstetrics History Last Filed Vital Signs Vital Sign Reading Time Taken Comments Blood Pressure 135/93 04/22/2024 12:17 PM TRANSPORTATION CONSULTANT Pulse 64 04/22/2024 12:17 PM TRANSPORTATION CONSULTANT Temperature 36.2 C (97.1 F) 04/22/2024 12:17 PM TRANSPORTATION CONSULTANT Respiratory Rate 16 04/22/2024 12:17 PM TRANSPORTATION CONSULTANT Oxygen Saturation 95% 04/22/2024 12:17 PM TRANSPORTATION CONSULTANT Inhaled Oxygen Concentration - - Weight 88.5 kg (195 lb 3.2 oz) 04/22/2024 12:17 PM TRANSPORTATION CONSULTANT Height 170.2 cm (5' 7 ) 04/22/2024 12:17 PM TRANSPORTATION CONSULTANT Body Mass Index 30.57 04/22/2024 12:17 PM TRANSPORTATION CONSULTANT Plan of Treatment Health Maintenance Due Date [...] B SURFACE ANTIGEN Routine 04/22/2024 1:22 PM TRANSPORTATION CONSULTANT Need for hepatitis B screening test HEPATITIS B CORE ANTIBODY, TOTAL Routine 04/22/2024 1:22 PM TRANSPORTATION CONSULTANT Need for hepatitis B screening test HEPATITIS B SURFACE ANTIBODY (IMMUNE STATUS) Routine 04/22/2024 1:22 PM TRANSPORTATION CONSULTANT Need for hepatitis B screening test HEPATITIS C ANTIBODY Routine 04/22/2024 1:22 PM TRANSPORTATION CONSULTANT Need for hepatitis C screening test from Last 3 Months Results * Hepatitis C antibody Blood (04/22/2024 1:22 PM TRANSPORTATION CONSULTANT) Hep C Ab Nonreactive Nonreactive Comment: Interpretive [...] last revised on 2019. Testing performed by: [facility], [address] [place] [address]., [id number] Blood 04/22/2024 1:22 PM TRANSPORTATION CONSULTANT 04/22/2024 8:28 PM TRANSPORTATION CONSULTANT Magdi Cain MD LAB MICROBIOLOGY - GENERAL ORDERABLES Final Result Performing Organization Address City/[facility]/ZIP Co de Phone Number MESERET [address] [facility] [place] [address] * Hepatitis B core antibody, total Blood (04/22/2024 1:22 PM TRANSPORTATION CONSULTANT) Pathologist [facility] Hep B core IgG/IgM Nonreactive Nonreactive Comment:Testing performed by : [facility], [address] [place] [address]., [id number] Blood 04/22/2024 1:22 PM TRANSPORTATION CONSULTANT 04/23/2024 10:28 AM TRANSPORTATION CONSULTANT Magdi Cain MD LAB MICROBIOLOGY - GENERAL ORDERABLES Final Result Performing Organization Address [facility] Co de Phone Number MESERET [address] [facility] [place] [address] * Hepatitis B surface antibody (immune status) Blood (04/22/2024 1:22 PM TRANSPORTATION CONSULTANT) Pathologist [facility] HBsAb (immune status) Nonreactive Comment: Interpretive Data [...] last revised on 19. Testing performed by: [facility], [address] [place] [address]., [id number] Blood 04/22/2024 1:22 PM TRANSPORTATION CONSULTANT 04/22/2024 8:28 PM TRANSPORTATION CONSULTANT Magdi Cain MD LAB MICROBIOLOGY - GENERAL ORDERABLES Final Result Performing Organization Address City/[facility]/ZIP Co de Phone Number MESERET MENDOSA [address] [address] [place] [address] * Hepatitis B Surface Antigen Blood (04/22/2024 1:22 PM TRANSPORTATION CONSULTANT) HepBsAg Nonreactive Nonreactive Comment:Testing performed by : [facility], [address] [place] [address]., [id number] Blood 04/22/2024 1:22 PM TRANSPORTATION CONSULTANT 04/22/2024 8:28 PM TRANSPORTATION CONSULTANT Magdi Cain MD LAB MICROBIOLOGY - GENERAL ORDERABLES Final Result Performing Organization Address [facility] Co de Phone Number MESERET MENDOSA [address] [address] [place] [address] from Last 3 Months Insurance MEDICARE MEDICARE MEDICARE Care Teams Brake Repairer Air Relationship Specialty Start Date End Date Magdi Cain MD PCP - General 05/28/13
--- OUTSIDE RECORDS SUMMARY | 2024-06-18 16:49 | XMS_ITS | Referral Summary ---
Author Organization [facility] [address] Address [address] [place] [address] Phone Care Team Providers Care Cover Inspector Name Role Phone Magdi Cain MD Primary Care Provider [phone]- [phone] Encounters Date Type Department Care Team Description 06/18/2024 Telephone [facility] [address] [place] [phone] Magdi Cain MD Anxiety 04/22/2024 1:30 PM COORDINATOR OF REHABILITATION SERVICES Lab [facility] [address] [place] [address] Need for hepatitis C screening test; Need for hepatitis B screening test 04/22/2024 1:00 PM COORDINATOR OF REHABILITATION SERVICES Office Visit [facility] [address] [place] [phone] Magdi Cain MD Need for immunization against [...] 02/09/2023 Assessment & Plan (02/09/2023 5:53 PM COORDINATOR OF REHABILITATION SERVICES): Patient has lost weight not on purpose he has a decreased appetite I am doing basic labs to make sure there is no underlying disease. 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 Assessment & Plan (02/09/2023 5:53 PM COORDINATOR OF REHABILITATION SERVICES): Patient did go to physical therapy did [...] 03/07/2021 Assessment & Plan (02/09/2023 5:51 PM COORDINATOR OF REHABILITATION SERVICES): Patient continues to have some back pain. He found physical therapy 6 months ago did help him reduce his pain 20-40% refer back to physical therapy also felt it made him stronger and ambulating patient would like to postpone physical therapy visits until 2023 when new insurance takes place Assessment & Plan (04/07/2021 5:52 PM COORDINATOR OF REHABILITATION SERVICES): Joint pains have improved some this is the ibuprofen Assessment & Plan (03/07/2021 4:39 PM COORDINATOR OF REHABILITATION SERVICES): Patient's chronic back pain for least a [...] has less pain less frequent less severity. [place] duration of pain. Encounter for preventive health examination 05/11 Assessment & Plan (04/23/2024 11:17 AM COORDINATOR OF REHABILITATION SERVICES): History and physical completed patient's health risk assessment health maintenance reviewed and addressed. No new health problems since his last visit with me.. Assessment & Plan (02/09/2023 5:50 PM COORDINATOR OF REHABILITATION SERVICES): History and physical completed health risk assessment [...] 17 Assessment & Plan (04/23/2024 11:33 AM COORDINATOR OF REHABILITATION SERVICES): Posttraumatic stress both parents who are . Experienced rejection. Patient describes when he lived in [place] as originally home he did have a [...] Lexapro Assessment & Plan (03/07/2021 4:36 PM COORDINATOR OF REHABILITATION SERVICES): Patient still experiences some posttraumatic stress wants [...] PM CDT): . Refer this patient to [facility] psychological services. Patient describes posttraumatic stress involving [...] duration Assessment & Plan (02/09/2023 5:52 PM COORDINATOR OF REHABILITATION SERVICES): Patient continues to do over anxiety depression. [...] therapy. Assessment & Plan (05/13/2021 6:02 PM COORDINATOR OF REHABILITATION SERVICES): Patient's anxiety and depression symptoms continue improved.. Had a 1 panic attack are meltdown a past 5 weeks since he has seen me. Patient feels paranoia and threatened. 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 Continues counseling with stay on the medications. Assessment & Plan (04/07/2021 5:52 PM COORDINATOR OF REHABILITATION SERVICES): Patient indicates he has definitely improved on medication Lexapro and BuSpar. He notice having less and, anxiety and paranoia. Does not feel as threatened repetitive thoughts have decreased significantly. He sees as needed for improvement Lexapro was increased to 40 mg daily. Assessment & Plan (03/07/2021 4:38 PM COORDINATOR OF REHABILITATION SERVICES): Patient's anxiety and depression he has fears [...] tolerable. Assessment & Plan (04/30/2019 3:48 PM COORDINATOR OF REHABILITATION SERVICES): Patient continues to be used for is [...] being very anxious he went to the [employer] hockey game last night and he was wearing the opponens [employer]. He had repetitive thoughts this someone was going to jump on him in bite in because he is wearing the opponent team [employer]. Attitude he was there for several minutes [...] (05/21/2018 6:13 PM CDT): Patient discharged from [facility] in [facility] yesterday for peritonsillar [...] 04/30/2019 Assessment & Plan (05/16/2018 6:19 PM COORDINATOR OF REHABILITATION SERVICES): Patient has been running a fever for [...] 04/30/2019 Assessment & Plan (05/16/2018 6:18 PM COORDINATOR OF REHABILITATION SERVICES): Patient's source is doing a lot of [...] on file Legal Sex Male 9:05 PM COORDINATOR OF REHABILITATION SERVICES Gender Identity Not on file Sexual Orientation Not on file Last Filed Vital Signs Vital Sign Reading Time Taken Comments Blood Pressure 135/93 04/22/2024 12:17 PM COORDINATOR OF REHABILITATION SERVICES Pulse 64 04/22/2024 12:17 PM COORDINATOR OF REHABILITATION SERVICES Temperature 36.2 C (97.1 F) 04/22/2024 12:17 PM COORDINATOR OF REHABILITATION SERVICES Respiratory Rate 16 04/22/2024 12:17 PM COORDINATOR OF REHABILITATION SERVICES Oxygen Saturation 95% 04/22/2024 12:17 PM COORDINATOR OF REHABILITATION SERVICES Inhaled Oxygen Concentration - - Weight 88.5 kg (195 lb 3.2 oz) 04/22/2024 12:17 PM COORDINATOR OF REHABILITATION SERVICES Height 170.2 cm (5' 7 ) 04/22/2024 12:17 PM COORDINATOR OF REHABILITATION SERVICES Body Mass Index 30.57 04/22/2024 12:17 PM COORDINATOR OF REHABILITATION SERVICES Plan of Treatment Not on file Procedures Procedure Name Priority Date/Time Associated Diagnosis Comments HEPATITIS B SURFACE ANTIGEN Routine 04/22/2024 1:22 PM COORDINATOR OF REHABILITATION SERVICES Need for hepatitis B screening test HEPATITIS B CORE ANTIBODY, TOTAL Routine 04/22/2024 1:22 PM COORDINATOR OF REHABILITATION SERVICES Need for hepatitis B screening test HEPATITIS B SURFACE ANTIBODY (IMMUNE STATUS) Routine 04/22/2024 1:22 PM COORDINATOR OF REHABILITATION SERVICES Need for hepatitis B screening test HEPATITIS C ANTIBODY Routine 04/22/2024 1:22 PM COORDINATOR OF REHABILITATION SERVICES Need for hepatitis C screening test from Last 3 Months Results * Hepatitis C antibody Blood (04/22/2024 1:22 PM COORDINATOR OF REHABILITATION SERVICES) Hep C Ab Nonreactive Nonreactive Comment: Interpretive [...] last revised on 2019. Testing performed by: [facility], [address] [place] [address]., [address] Blood 04/22/2024 1:22 PM COORDINATOR OF REHABILITATION SERVICES 04/22/2024 8:28 PM COORDINATOR OF REHABILITATION SERVICES us Magdi Cain MD LAB MICROBIOLOGY - GENERAL ORDERABLES Final Result Performing Organization Address City/State/[facility] Co de Phone Number [facility] [address] [facility] Department [place] [address] * Hepatitis B core antibody, total Blood (04/22/2024 1:22 PM COORDINATOR OF REHABILITATION SERVICES) Hep B core IgG/IgM Nonreactive Nonreactive Comment:Testing performed by : [facility], [address] [place] [address], [place]., [address] Blood 04/22/2024 1:22 PM COORDINATOR OF REHABILITATION SERVICES 04/23/2024 10:28 AM COORDINATOR OF REHABILITATION SERVICES us Magdi Cain MD LAB MICROBIOLOGY - GENERAL ORDERABLES Final Result Performing Organization Address City/[facility]/ZIP Co de Phone Number MESERET MENDOSA [address] [address] * Hepatitis B surface antibody (immune status) Blood (04/22/2024 1:22 PM COORDINATOR OF REHABILITATION SERVICES) HBsAb (immune status) Nonreactive Comment: Interpretive Data [...] last revised on 19. Testing performed by: [address] [address] Blood 04/22/2024 1:22 PM COORDINATOR OF REHABILITATION SERVICES 04/22/2024 8:28 PM COORDINATOR OF REHABILITATION SERVICES us Magdi Cain MD LAB MICROBIOLOGY - GENERAL ORDERABLES Final Result Performing Organization Address [facility] Co de Phone Number MESERET [address] [facility] [place] [address] * Hepatitis B Surface Antigen Blood (04/22/2024 1:22 PM COORDINATOR OF REHABILITATION SERVICES) HepBsAg Nonreactive Nonreactive Comment:Testing performed by : [address] [address] Blood 04/22/2024 1:22 PM COORDINATOR OF REHABILITATION SERVICES 04/22/2024 8:28 PM COORDINATOR OF REHABILITATION SERVICES Magdi Cain MD LAB MICROBIOLOGY - GENERAL ORDERABLES Final Result MESERET MENDOSA [address] [place] [address] from Last 3 Months Insurance MEDICARE MEDICARE MEDICARE Care Teams Cover Inspector Relationship Specialty Start Date End Date Magdi Cain MD [facility] - General 05/28/13
--- OUTSIDE RECORDS SUMMARY | 2024-06-18 16:49 | XMS_ITS | Encounter Summary ---
Author Organization [facility] Healthcare Address [address] [place] [id number] Care Team Providers Care Electron Beam Welder Name Role Phone Magdi Cain MD Primary Care Provider +1- [phone] Reason for Visit * Reason Onset Date Comments Anxiety 06/18/2024 Encounter Details Date Type Department Care Team (Late st Contact Info) Description 06/18/2024 Telephone [facility] [address] [place] [address] Magdi Cain MD [address] [place] [address] Anxiety Social History Tobacco Use Types Packs/Day [...] on file Legal 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 Gender Identity Not on file Sexual Orientation [...] you don't get me help today the home health care coordinator will be taking my body tomorrow et [...] home while also dispatching ambulance to pt's residence-police dispatcher arrived @ 1:58-he instructed his dispatch to [...] to a nurse for advise Pt cbn: [phone] documented in this encounter Plan of Treatment Not on file documented as of this encounter Visit Diagnoses Not on filedocumented in this encounter Care Teams Electron Beam Welder Relationship Specialty Start Date End Date Magdi Cain MD PCP - General 05/28/13 documented as of this encounter
--- NOTE | 2024-06-18 17:46 | PC.NURSE ---
MORE WATER HAS BEEN PROVIDED, PT HAS ATTEMPTED TO PROVIDE SPECIMEN MULTIPLE TIMES WITHOUT SUCCESS.
[2024-06-18 18:25] LABS: Add Urine Microscopic? YES; Appearance Urine Clear (Clear); Bilirubin Urine 2+ (Negative); Blood Urine Trace-intact (Negative); Color Urine Yellow (Yellow); Glucose Urine UA Negative (Negative); Ketones Urine 2+ (Negative); Leukocyte Esterase Ur Negative LEU/UL (Negative); Nitrate Urine Negative (Negative); Protein Urine Trace (Negative)
--- NOTE | 2024-06-18 18:25 | PC.NURSE ---
PT COULD NOT URINATE, WAS AGREEABLE TO STRAIGHT CATHETERIZATION. URINE WAS COLLECTED, AND PT TOLERATED WITH PAIN. SPECIMEN SENT TO LAB FOR EVALUATION. WILL CONTINUE TO MONITOR. FAMILY REMAINS AT BEDSIDE.
[2024-06-18 18:30] VITALS: BP 128/92; PULSE 76; RESP 20; O2SAT 99
[2024-06-18 18:30] LABS: Bacteria Urine Trace /hpf; Mucus Urine Moderate /lpf; RBC Urine 0-2 /hpf (0-2); Squamous Epithelial Cell Urine Rare /hpf (Few); WBC Urine 0-3 /hpf (0-3)
[2024-06-18 18:34] LABS: Amphetamine Screen Urine Negative (Negative); Barbiturate Screen Urine Negative (Negative); Benzodiazepines Screen Urine Negative (Negative); Cannabinoid Screen Urine Positive (Negative); Cocaine Screen Urine Negative (Negative); Methadone Screen Urine Negative (Negative); Opiate Screen Urine Negative (Negative); Phencyclidine Screen Urine Negative (Negative)
--- NOTE | 2024-06-18 19:05 | PC.NURSE ---
patient awake and alert, resting on stretcher in ED 5. Update provided including [employer] employee coming for eval. patient and family at bedside, denies current needs.
--- NOTE | 2024-06-18 19:07 | PC.NURSE ---
REPORT TO HELENA AZAR, PT AND FAMILY HAVE BEEN UPDATED AND ARE AWAITING ARRIVAL OF DAWSON DAVIS
--- NOTE | 2024-06-18 19:37 | PC.NURSE ---
[facility] representatives at bedside at this time to evaluate patient. Patient spouse, step mother, father all remain at bedside at this time. RN monitoring.
[2024-06-18] MEDS: ALPRAZolam (*CRX) 0.5 MG TABLET PO (20:41)
[2024-06-18 20:43] VITALS: BP 136/82; PULSE 77; RESP 18; TEMP 35.8; O2SAT 96
--- NOTE | 2024-06-18 20:48 | PC.NURSE ---
patient family at bedside. patient medicated per request and given fruit for snack. patient originally given sandwich, however family member wishes to bring patient food since he had a sandwich for lunch upon arrival. patient cooperative. awaiting inpatient placement.
--- NOTE | 2024-06-18 22:11 | PC.NURSE ---
per [facility], patient chart has been faxed to Sarabjit, [facility] and Thanh. Awaiting hearing back regarding accepting provider.
--- NOTE | 2024-06-18 22:22 | PC.NURSE ---
patient moved to ED room 4 as need for ED room 5 arose. patient remains calm, cooperative.
--- NOTE | 2024-06-19 | PC.NURSE ---
patient speaking to Dominga, intake with [facility] at this time.
[2024-06-19] MEDS: ALPRAZolam (*CRX) 0.5 MG TABLET 1 MG PO (00:13)
[2024-06-19 00:15] VITALS: BP 105/85; PULSE 69; RESP 18; TEMP 35.7; O2SAT 97
--- NOTE | 2024-06-19 00:20 | PC.NURSE ---
patient anxious, agitated about phone call with intake at [facility] as they told patient he is not a good fit for their facility. patient medicated. given warm blankets for comfort. lights dimmed.
--- NOTE | 2024-06-19 01:32 | PC.NURSE ---
patient asleep on stretcher in ED 4. RN monitoring. awaiting hearing back from [facility] regarding accepting provider name and room assignment/RN report.
--- NOTE | 2024-06-19 02:29 | PC.NURSE ---
RN phoned patient father, Damion .[phone] for update and his , Kayla [phone].
--- NOTE | 2024-06-19 02:48 | PC.NURSE ---
patient at bedside at this time. patient awaiting EMS transfer to [facility]
== END 2024-06-19 03:10 ==
PROVIDERS: Emergency Provider Internal Medicine Critical Care Medicine; PCP Internal Medicine
DX: F32.A Depression, unspecified (principal); R45.851 Suicidal ideations; G80.9 Cerebral palsy, unspecified; Z20.822 Contact with and (suspected) exposure to COVID-19; Z79.899 Other long term (current) drug therapy
CPT/HCPCS: 36415; 80053; 80307; 81001; 84443; 84484; 85025; 87637; 93005; 99285; A9270